=== PATIENT | male | born 1965 | race African-American/Black ===

== ENCOUNTER 2017-09-21 06:39 | Outpatient (CLI) | payer BC ==
[2017-09-21 19:03] LABS: BASOPHILS % (AUTO) 0.8 %; EOSINOPHILS # (AUTO) 0.6 10^3/uL (0.0-0.7); EOSINOPHILS % (AUTO) 13.3 %; HCT - HEMATOCRIT 46.6 % (42.0-52.0); HGB - HEMOGLOBIN 15.1 g/dL (14.0-18.0); LYMPHOCYTES # (AUTO) 1.7 10^3/uL (1.5-3.5); LYMPHOCYTES % (AUTO) 40.5 %; MEAN CORPUSCULAR HEMOGLOBIN 28.2 pg (27.0-31.0); MEAN CORPUSCULAR HGB CONC 32.4 g/dL (32.0-36.0); MEAN CORPUSCULAR VOLUME 86.9 fL (80.0-94.0); MEAN PLATELET VOLUME 8.7 fL (7.4-11.4); MONOCYTES # (AUTO) 0.3 10^3/uL (0.0-1.0); MONOCYTES % (AUTO) 7.7 %; NEUTROPHILS # (AUTO) 1.6 10^3/uL (1.5-6.6); NEUTROPHILS % (AUTO) 37.7 %; NUCLEATED RED BLOOD CELLS AUTO 0.1 /100WBC; RED BLOOD COUNT 5.37 10^6/uL (4.70-6.10); RED CELL DISTRIBUTION WIDTH 13.3 % (12.0-15.0); UNCORRECTED WHITE BLOOD COUNT 4.3 x10^3/uL; WHITE BLOOD COUNT 4.3 x10^3/uL (4.8-10.8)
[2017-09-21 19:16] LABS: ALBUMIN/GLOBULIN RATIO 1.4 (1.0-2.2); BILIRUBIN,TOTAL 0.4 mg/dL (0.2-1.0); BUN - BLOOD UREA NITROGEN 12 mg/dL (6-20); CARBON DIOXIDE - CO2 25 mmol/L (21-32); CHLORIDE 105 mmol/L (101-111); CHOL/HDL RATIO 4.6 (<5.0); CHOLESTEROL 130 mg/dL; GFR - MDRD 96 (>89); GLUCOSE 101 mg/dL (70-100); HDL CHOLESTEROL 28 mg/dL; LDL/HDL RATIO 3.1 (<3.6); SODIUM 136 mmol/L (135-145); TOTAL PROTEIN 7.2 g/dL (6.7-8.2); TRIGLYCERIDES 82 mg/dL; VLDL CHOLESTEROL 16 mg/dL
[2017-09-21 19:36] LABS: HEMOGLOBIN A1C 0.72 g/dL
== END 2017-09-21 06:40 | disposition home or self-care (01) ==
LOC: LAB.WCP 06:39
PROVIDERS: ATTEND Family Medicine
DX: J44.9 Chronic obstructive pulmonary disease, unspecified (principal); Z83.3 Family history of diabetes mellitus
CPT/HCPCS: 36415; 80053; 80061; 82043; 83036; 84443; 85025

== ENCOUNTER 2017-10-10 10:55 | Outpatient (CLI) | payer BC | END 2017-10-10 10:56 | disposition home or self-care (01) | LOC: LAB.WCP 10:55 | PROVIDERS: ATTEND Family Medicine | DX: Z12.5 Encounter for screening for malignant neoplasm of prostate (principal) | CPT/HCPCS: 36415; 84153 ==

== ENCOUNTER 2017-12-31 06:19 | Day surgery (SDC) | payer BC ==
[2017-12-31] MEDS ORDERED: LACTATED RINGERS 1,000 ML IV ONE (06:59)
[2017-12-31] MEDS ORDERED: fentaNYL 100 MCG/2 ML VIAL IVP ONE (07:37)
[2017-12-31] MEDS ORDERED: MIDAZOLAM 2 MG/2 ML VIAL IVP ONE (07:37)
[2017-12-31 08:31] VITALS: BP 127/78
== END 2017-12-31 06:20 | disposition home or self-care (01) ==
LOC: SDS 06:19
PROVIDERS: ATTEND Surgery
PROC: 0DJD8ZZ Inspection of Lower Intestinal Tract, Via Natural or Artificial Opening Endoscopic (ICD-10-PCS; principal; 2017-12-31 07:30)
DX: Z12.11 Encounter for screening for malignant neoplasm of colon (principal); K64.8 Other hemorrhoids; K57.30 Diverticulosis of large intestine without perforation or abscess without bleeding; J44.9 Chronic obstructive pulmonary disease, unspecified; Z87.891 Personal history of nicotine dependence
CPT/HCPCS: 45378; J7120